=== PATIENT | female | born 1970 | race Caucasian/White ===

== ENCOUNTER 2017-01-16 16:18 | Inpatient (IN) | payer OTHER | END 2017-01-19 10:37 | disposition home or self-care (01) | DRG 392 | LOC: ER 16:18 → EROBS 19:35 → 4E 20:52 | DX: K52.9 Noninfective gastroenteritis and colitis, unspecified (principal); D72.829 Elevated white blood cell count, unspecified; Z88.6 Allergy status to analgesic agent; Z88.8 Allergy status to other drugs, medicaments and biological substances ==